=== PATIENT | female | born 2000 | race African-American/Black ===

== ENCOUNTER 2025-05-02 09:48 | Day surgery (SDC) | payer OTHER ==
[~2025-05-02 09:48] MED LIST: Ferumoxytol (NON ERSD) 510 MG in 0.9 % Sodium Chloride 150 ML IVPB SCH
[2025-05-02] MEDS ORDERED: Acetaminophen 500 MG TAB ONE (10:02)
[2025-05-02] MEDS: Acetaminophen 500 MG TAB PO SCH (10:03)
[2025-05-02 15:29] VITALS: BP 129/64; TEMP 98.3
== END 2025-05-02 15:26 | disposition home or self-care (01) ==
LOC: ONC/OP 09:48 → EEVIPCON 09:48 → ONC/OP 15:26
DX: O99.019 Anemia complicating pregnancy, unspecified trimester (principal); Z3A.00 Weeks of gestation of pregnancy not specified
CPT/HCPCS: 96365; 96366; Q0138